=== PATIENT | male | born 1995 | race Caucasian/White ===

== ENCOUNTER → 2023-03-20 11:23 | Outpatient (BNVA) | payer BC, SELFPAY | PROVIDERS: PCP Physician Assistant Medical; Visit Provider Emergency Medicine | DX: S60.012A Contusion of left thumb without damage to nail, initial encounter; W23.0XXA Caught, crushed, jammed, or pinched between moving objects, initial encounter | CPT/HCPCS: 73130 ==

== ENCOUNTER 2023-05-08 20:32 | Emergency (ER) | payer OTHER, BC, SELFPAY ==
[2023-05-08 20:41] VITALS: BP 144/86; PULSE 75; RESP 17; TEMP 36.4; O2SAT 96; BMI 33.5
--- NOTE | 2023-05-08 20:51 | W.ED.SKABFB ---
HPI - Skin/Abscess/Foreign Bdy General: Chief complaint: Skin/Abscess/Foreign Body Stated complaint: foot pain Time Seen by Provider: 05/08/23 20:44 Source: patient Mode of arrival: ambulatory Limitations: no limitations History of Present Illness: 27-year-old male states he had ingrown toenail of the right great toe over the last 2 months states that had swelling and pain he states he had [address] Davies in the past he states it is worse when he hits it improved with rest denies any fevers Associated symptoms: Deny chills, fever(s), nausea or vomiting Review of Systems Const: Denies: fever(s), chills, body aches or change in appetite ENMT: Denies: throat pain or dental pain Card: Denies: chest pain Resp: Denies: dyspnea GI: Denies: abdominal pain, nausea, vomiting or diarrhea Musc: Reports: extremity pain; Denies: neck pain or back pain Neuro: Denies: headache(s) PFSH ED PFSH: Medical History Obesity (BMI 30.0-34.9) Social History Smoking and tobacco/nicotine status: former use of tobacco/nicotine Physical Exam Const: COMMON NORMALS: no acute distress, patient oriented x3 and healthy appearing HENMT: COMMON NORMALS: normocephalic and atraumatic HEAD & SCALP: normocephalic and atraumatic Neck/C-Spine: COMMON NORMALS: full ROM and supple Chest: COMMONS NORMALS: normal inspection of the chest Resp: COMMON NORMALS: normal respiratory effort Cardio: COMMON NORMALS: regular rate, regular rhythm and No murmurs present (Cardio) RATE: regular rate RHYTHM: regular rhythm Extremity: COMMON NORMALS: full ROM NARRATIVE EXTREMITY EXAM: Ingrown toenail to right great toe Neuro: COMMON NORMALS: patient oriented x3, moves all extremities and no focal motor deficits Psych: COMMON NORMALS: mental status grossly normal, Normal thought process present and cooperative THOUGHT PROCESS: Normal thought process present Skin: COMMON NORMALS: no rashes or lesions noted and no wounds GENERAL SKIN EXAM: no rashes or lesions noted Course Vital Signs: Vital signs: Vital Signs Temperature 97.5 F L 05/08/23 20:41 Pulse Rate 75 05/08/23 20:41 Respiratory Rate 17 05/08/23 20:41 Blood Pressure 144/86 05/08/23 20:41 Pulse Oximetry 96 05/08/23 20:41 Oxygen Delivery Me thod Room Air 05/08/23 20:41 MDM - Skin/Abscess/Foreign Bdy Medicial Decision Making Patient presents with ingrown toenail we will place him on antibiotics pain meds getting follow-up with podiatry return if worsening Medical Records I reviewed the patient's medical records. No radiology studies performed this visit Discharge Plan Discharge Patient Disposition: Home Clinical Impression: Ingrown nail Condition: Stable Prescriptions: New hydrocodone-acetaminophen 5-325 mg tablet 1 tab PO Q6H PRN (Reason: pain) Qty: 14 0RF Bactrim DS 800-160 mg tablet 1 tab PO BID 10 Days Qty: 20 0RF No Action melatonin 10 mg capsule 10 mg PO DAILY Discharge Orders: Discharge ED (Routine); Ordered 05/08/23 Ordered By: Maribel So Referrals: Mia Gautam [Primary Care Provider] - Dariel Davies DPM [Physician] - 4-7 days Discharge Diet: Advance as tolerated Discharge Activity: Resume usual activity Patient Instructions: Ingrown Nail (ED), Opioid Safety Coding Level of Care Code ED Service Assistant for Lencho Torres
[2023-05-08] MEDS: sulfamethoxazole-trimeth DS 160-800 mg Tablet 1 TAB PO (21:06)
[2023-05-08] MEDS: HYDROcodone-acetaminophen 5-325 mg Tablet 1 TAB PO (21:06)
[2023-05-08 21:10] VITALS: BP 144/86; PULSE 75; RESP 17; TEMP 36.4; O2SAT 96
--- NOTE | 2023-05-10 08:33 | DCPLANNER ---
Message was sent to podiatry on 05/10/23 at 0834. Clinic to contact patient.
== END 2023-05-08 21:11 | disposition home or self-care (01) ==
PROVIDERS: Emergency Provider Emergency Medicine; PCP Physician Assistant Medical
DX: L60.0 Ingrowing nail (principal); Z87.891 Personal history of nicotine dependence
CPT/HCPCS: 99283